=== PATIENT | male | born 1975 | race Caucasian/White ===

== ENCOUNTER 2017-07-15 04:53 | Emergency (ER) | payer OTHER ==
[~2017-07-15] VITALS: Ht 182.9 cm; Wt 106.3 kg
[~2017-07-15 04:53] MED LIST: NOHOMEMEDS
[2017-07-15 07:46] VITALS: BP 160/100
== END 2017-07-15 07:48 | disposition home or self-care (01) ==
LOC: EME 04:53
PROC: 0HQ0XZZ Repair Scalp Skin, External Approach (ICD-10-PCS; principal; 2017-07-15)
DX: S01.01XA Laceration without foreign body of scalp, initial encounter (principal); W01.198A Fall on same level from slipping, tripping and stumbling with subsequent striking against other object, initial encounter; Z87.891 Personal history of nicotine dependence
CPT/HCPCS: 99281; 99284